=== PATIENT | male | born 1985 | race Caucasian/White ===

== ENCOUNTER 2018-04-11 14:24 | Emergency (ER) | payer OTHER ==
[2018-04-11 15:02] VITALS: TEMP 97.7
[2018-04-11 15:34] LABS: APPEARANCE,URINE Clear; BILIRUBIN,URINE NEGATIVE (NEGATIVE); COLOR,URINE Yellow; GLUCOSE, URINE (UA) NEGATIVE (NEGATIVE); KETONES,URINE NEGATIVE (NEGATIVE); LEUKOCYTE ESTERASE ,URINE NEGATIVE (NEGATIVE); NITRATE,URINE NEGATIVE (NEGATIVE); OCCULT BLOOD,URINE 2+ (NEG-TRACE); PH,URINE 5.5; UROBILINOGEN,URINE 0.2 (0.2-1.0 EU)
[2018-04-11 16:00] LABS: BACTERIA 1+ (< 1+); CRYSTALS NEGATIVE (0-3 AVE/HPF); EPITHELIAL CELLS NEGATIVE (SQUAMOUS); WBC,URINE 0-1 (0-5AV/HPF)
[2018-04-11 16:45] VITALS: BP 135/79; PULSE 73; RESP 20; O2SAT 95
[2018-04-11] MEDS ORDERED: TDAP VACCINE 0.5 ML SUS IM ONE ×2 (17:52→17:54)
== END 2018-04-11 18:02 | disposition home or self-care (01) | DRG 605 ==
LOC: ED 14:24
DX: S30.1XXA Contusion of abdominal wall, initial encounter (principal)
CPT/HCPCS: 74177; 81001; 90471; 90715; 99283; Q9967